=== PATIENT | male | born 1980 | race Caucasian/White ===

== ENCOUNTER 2019-03-14 17:00 | Inpatient (IN) ==
--- NOTE | 2019-03-14 17:28 | Emergency Department Note ---
Disposition Clinical Impression: Cellulitis Qualifiers: Site of cellulitis: extremity Site of cellulitis of extremity: upper extremity Laterality: left Qualified Code(s): L03.114 - Cellulitis of left upper limb Disposition: Admitted As Inpatient Condition: Fair Referrals: Dominic Fletcher DO [Primary Care Provider] - Forms: ED Satisfaction Letter Time of Disposition: 20:06 General Adult HPI - General Chief complaint: ED Recheck/Abnormal Lab/Rx Stated complaint: Abscess/swelling Time Seen by Provider: 03/14/19 17:28 Source: patient Mode of arrival: other (group home) Limitations: no limitations Nursing Notes Reviewed: Yes Vital Signs Reviewed: Yes - History of Present Illness HPI Narrative: This is a 38-year-old male presenting from group home with a deputy building guard at bedside. He states that he was here a few days ago and had left arm pain and was found to have an infection likely olecranon bursitis. He was discharged on oral Keflex and was sent back to group home. He has since had an increase of the area of induration now having fevers and chills, increase of pain. He states that he is in 10 out of 10 pain and it is sharp and constant. He is only taking ibuprofen for his pain and it has not helped him any. He has had subjective fevers however his temperature was not taken at the group home. Eyes any chest pain, shortness of breath, nausea or vomiting or diarrhea. He denies any abdominal pain. He denies any dizziness, lightheadedness. He was told to come back to the emergency room because his blood cultures were positive for gram-negative rods. This was only the preliminary reported no sensitivities were provided. Pt Subjective Complaint: arm hurts Pain Scale: 8 - Related Data Home Medications Medication Instructions Recorded Confirmed ALPRAZolam [Xanax 1 MG Tablet] 1 mg PO TID PRN 03/14/19 03/14/19 Albuterol Sulfate [Proventil 2 puff IH Q4HR PRN 03/14/19 03/14/19 Inhaler] Citalopram Hydrobromide [Celexa] 40 mg PO DAILY 03/14/19 03/14/19 Fluticasone Propionate Nasal 50 mcg NS DAILY 03/14/19 03/14/19 [Flonase] Previous Rx's Medication Instructions Recorded Sulfamethoxazole/Trimeth DS 1 each PO BID 10 Days tablet 03/12/19 [Bactrim DS] cephALEXin [Keflex] 500 mg PO QID 10 Days capsule 03/12/19 Allergies Allergy/AdvReac Type Severity Reaction Status Date / Time No Known Allergies Allergy Verified 03/12/19 01:52 Review of Systems: Constitutional: + fever, chills Cardio: denies chest pain, palpiltations Lungs: denies SOB, wheeze, cough, hemoptysis GI: denies N/V/D, denies abdominal pain, hematochezia : denies dysuria, hematuria MSK: admits to decreased ROM, joint swelling and stiffness; denies loss of function of the extremities Heme: denies easy bruising Neuro: deneis numbness or tingling, denies dizziness Skin: admits to left elbow wound with extension to the wrist and axilla Lymph: admits to swelling of the left arm Psych: denies anxiety, depression Allergy: denies seasonal allergies or food allergies All systems ED: reviewed and negative except as stated. Review of Systems: As Per [facility] Past Medical History - Past Medical History Attestation: Yes The following information was validated with the patient. Medical history: Reports: asthma Surgical history: Reports: other Psychiatric history: Reports: anxiety, PTSD - Social History Smoking Status: Current every day smoker Smokeless Tobacco Status: No Alcohol use: Reports: occasionally Drug use: Reports: marijuana, IV Drug Use Physical Exam . General: Well-developed, well-nourished patient lying in bed who appears non- toxic, mild distress Head: Atraumatic, normocephalic. Eyes: Sclera anicteric. ENT: Mucous membranes moist. Heart: Regular rate and rhythm without appreciable murmur. S1S2 CTA Neck: no JVD Lungs: Normal respiratory pattern without distress, lungs clear to auscultation b/l. No wheeze, rhonchi, rales or stridor Abdomen: Soft, non-tender, non-distended, no guarding or peritoneal signs. No bruising noted to the abdomen. No surgical scars present. Skin: Warm and dry without rash. Multiple tattoos Neurologic: Awake and alert with normal speech and mental status. Pupils are equal. Moves all extremities equally well. No focal deficits or lateralizing s igns. Follows command. To move all extremities and has intact motor function of both upper extremities including the fingers. Vascularly intact Psychiatric: Mood and affect appropriate, mildly anxious Musculoskeletal: No peripheral edema. Has swelling of the left upper extremity with trace pitting edema of the forearm region including the elbow. There is a foci of induration surrounding a furnucle without any drainage - General Limitations: no limitations General appearance: alert, in no apparent distress Course Course Narrative: History presenting with deputy building guard and was recently here for olecranon bursitis. He was given by mouth Keflex and discharged back to the group home. He had blood cultures that were still pending and grew out gram-negative organisms, no sensitivities have been provided yet. He was called back to the emergency room due to positive blood cultures. We will repeat basic labs and obtain a new set of blood cultures. Will start the patient on broad-spectrum antibiotics as his area of cellulitis has expanded and his arm now has edema with extension of infection to the axilla and down to the left wrist. Patient dose of vancomycin and Zosyn while in the emergency room. He is given fentanyl for pain control. Disposition is to be admitted to the hospitalist and orthopedic surgery consult. - Consultations Consultation #1: I spoke to Dr. Hanson in the orthopedic surgeon on-call. He stated that he wants the patient admitted to hospitalist with an orthopedic sx consult. Consult order placed in [facility]. Time: 17:30 Consultation #2: Hospitalist accepted the patient for admission. Time: 20:00 Vital Signs Temperature 99.7 F H 03/14/19 17:03 Pulse Rate 81 03/14/19 17:03 Respiratory Rate 18 03/14/19 17:03 Blood Pressure 117/75 03/14/19 17:03 O2 Sat by Pulse Oximetry 98 03/14/19 17:03 Temperature 99.8 F H 03/14/19 18:25 Pulse Rate 81 03/14/19 18:25 Respiratory Rate 18 03/14/19 18:25 Blood Pressure 117/75 03/14/19 18:25 O2 Sat by Pulse Oximetry 98 03/14/19 18:25 Oxygen Delivery Oxygen Delivery Room Air Medical Decision Making - [facility] Narrative Medical decision making narrative: pt present with officer at bedside after failed outpatient treatment of colitis/olecranon bursitis. He does have an increasing area of erythema and cellulitis, he has olecranon bursitis with suspected bacteremia. he does have intact neurologic function as well as motor function of the extremity and fingers. He does have positive blood cultures for gram-negative rods from March 12. Repeat blood cultures pending as well as was started on broad-spectrum antibiotics including vancomycin and Zosyn. This time he only needs 1 SIRS criteria for white count, he remains without tachycardia or tachypnea and fever. The lactic acid was within normal limits. I spoke to the orthopedic surgeon radiosonde specialist who requested the patient be admitted with a orthopedic consult and hospitalist as primary. PT/INR and made the patient nothing by mouth at midnight in case of surgical intervention. hospitalist did accept the patient for admission. The patient is aware of the plan and has no further questions. He did request more pain medication and he was provided with [place] one time. - Lab Data Lab results reviewed: Yes I reviewed the patient's lab results. Result diagrams: 03/14/19 18:07 03/14/19 18:07 Lab Results 03/14/19 03/14/19 03/14/19 Range/Units 18:07 18:07 18:07 WBC 13.0 H (4.3-11.1) K/mcL RBC 4.04 L (4.19-5.50) M/mcL Hgb 12.3 L D (12.9-16.9) g/dL Hct 37.8 (37.5-50.1) % MCV 93.6 (83.0-100.0) fL MCH 30.4 (28.0-33.3) pg MCHC 32.5 (31.6-35.5) g/dL RDW 12.8 (11.5-14.5) % Plt Count 230 (140-400) K/mcL MPV 9.2 L (9.4-12.4) fL Immature Gran % 0.4 (0-4) % Seg Neutrophils % 58.7 % Lymphocytes % 32.0 % Monocytes % 7.9 % Eosinophils % 0.5 % Basophils % 0.5 % Neutrophils # 7.6 (1.6-8.9) K/mcL Lymphocytes # 4.2 (0.6-4.6) K/mcL Monocytes # 1.0 (0.0-1.3) K/mcL Eosinophils # 0.1 (0.0-0.6) K/mcL Basophils # 0.1 (0.0-0.2) K/mcL Platelet Estimate Normal (Normal) PT 10.9 (9.4-12.1) Seconds INR 1.0 Sodium 138 (136-145) mEq/L Potassium 3.9 (3.5-5.1) mEq/L Chloride 99 (98-107) mEq/L Carbon Dioxide 30 H (23-29) mEq/L BUN 9 (6-20) mg/dL Creatinine 0.81 (0.70-1.30) mg/dL Est GFR ( Amer) > 60 (> 60) Est GFR (Non-Af Amer) > 60 (> 60) BUN/Creatinine Ratio 11 (6-26) Glucose 76 (70-105) mg/dL Calculated Osmolality 283 (280-300) Lactic Acid (0.5-2.2) mmol/L Calcium 9.1 (8.6-10.3) mg/dL 03/14/19 Range/Units 18:07 WBC (4.3-11.1) K/mcL RBC (4.19-5.50) M/mcL Hgb (12.9-16.9) g/dL Hct (37.5-50.1) % MCV (83.0-100.0) fL MCH (28.0-33.3) pg MCHC (31.6-35.5) g/dL RDW (11.5-14.5) % Plt Count (140-400) K/mcL MPV (9.4-12.4) fL Immature Gran % (0-4) % Seg Neutrophils % % Lymphocytes % % Monocytes % % Eosinophils % % Basophils % % Neutrophils # (1.6-8.9) K/mcL Lymphocytes # (0.6-4.6) K/mcL Monocytes # (0.0-1.3) K/mcL Eosinophils # (0.0-0.6) K/mcL Basophils # (0.0-0.2) K/mcL Platelet Estimate (Normal) PT (9.4-12.1) Seconds INR Sodium (136-145) mEq/L Potassium (3.5-5.1) mEq/L Chloride (98-107) mEq/L Carbon Dioxide (23-29) mEq/L BUN (6-20) mg/dL Creatinine (0.70-1.30) mg/dL Est GFR ( Amer) (> 60) Est GFR (Non-Af Amer) (> 60) BUN/Creatinine Ratio (6-26) Glucose (70-105) mg/dL Calculated Osmolality (280-300) Lactic Acid 1.0 (0.5-2.2) mmol/L Calcium (8.6-10.3) mg/dL
--- NOTE | 2019-03-14 17:38 | Emergency Department Note ---
Disposition Clinical Impression: Cellulitis Qualifiers: Site of cellulitis: extremity Site of cellulitis of extremity: upper extremity Laterality: left Qualified Code(s): L03.114 - Cellulitis of left upper limb Disposition: Admitted As Inpatient Condition: Fair Time of Disposition: 21:13 General Adult HPI - General Chief complaint: ED Recheck/Abnormal Lab/Rx Stated complaint: Abscess/swelling Time Seen by Provider: 03/14/19 17:28 - History of Present Illness Pain Scale: 8 - Related Data Home Medications Medication Instructions Recorded Confirmed ALPRAZolam [Xanax 1 MG Tablet] 1 mg PO TID PRN 03/14/19 03/14/19 Albuterol Sulfate [Proventil 2 puff IH Q4HR PRN 03/14/19 03/14/19 Inhaler] Citalopram Hydrobromide [Celexa] 40 mg PO DAILY 03/14/19 03/14/19 Fluticasone Propionate Nasal 50 mcg NS DAILY 03/14/19 03/14/19 [Flonase] Previous Rx's Medication Instructions Recorded Sulfamethoxazole/Trimeth DS 1 each PO BID 10 Days tablet 03/12/19 [Bactrim DS] cephALEXin [Keflex] 500 mg PO QID 10 Days capsule 03/12/19 Allergies Allergy/AdvReac Type Severity Reaction Status Date / Time No Known Allergies Allergy Verified 03/12/19 01:52 Past Medical History - Past Medical History Medical history: Reports: asthma Surgical history: Reports: other Psychiatric history: Reports: anxiety, PTSD - Social History Smoking Status: Current every day smoker Smokeless Tobacco Status: No Alcohol use: Reports: occasionally Drug use: Reports: marijuana, IV Drug Use Course Vital Signs Temperature 99.7 F H 03/14/19 17:03 Pulse Rate 81 03/14/19 17:03 Respiratory Rate 18 03/14/19 17:03 Blood Pressure 117/75 03/14/19 17:03 O2 Sat by Pulse Oximetry 98 03/14/19 17:03 Temperature 99.8 F H 03/14/19 18:25 Pulse Rate 81 03/14/19 18:25 Respiratory Rate 20 03/14/19 21:07 Blood Pressure 122/76 03/14/19 21:07 O2 Sat by Pulse Oximetry 98 03/14/19 18:25 Oxygen Delivery Oxygen Delivery Room Air Medical Decision Making - Lab Data Result diagrams: 03/14/19 18:07 03/14/19 18:07 Lab Results 03/14/19 03/14/19 03/14/19 Range/Units 18:07 18:07 18:07 WBC 13.0 H (4.3-11.1) K/mcL RBC 4.04 L (4.19-5.50) M/mcL Hgb 12.3 L D (12.9-16.9) g/dL Hct 37.8 (37.5-50.1) % MCV 93.6 (83.0-100.0) fL MCH 30.4 (28.0-33.3) pg MCHC 32.5 (31.6-35.5) g/dL RDW 12.8 (11.5-14.5) % Plt Count 230 (140-400) K/mcL MPV 9.2 L (9.4-12.4) fL Immature Gran % 0.4 (0-4) % Seg Neutrophils % 58.7 % Lymphocytes % 32.0 % Monocytes % 7.9 % Eosinophils % 0.5 % Basophils % 0.5 % Neutrophils # 7.6 (1.6-8.9) K/mcL Lymphocytes # 4.2 (0.6-4.6) K/mcL Monocytes # 1.0 (0.0-1.3) K/mcL Eosinophils # 0.1 (0.0-0.6) K/mcL Basophils # 0.1 (0.0-0.2) K/mcL Platelet Estimate Normal (Normal) PT 10.9 (9.4-12.1) Seconds INR 1.0 Sodium 138 (136-145) mEq/L Potassium 3.9 (3.5-5.1) mEq/L Chloride 99 (98-107) mEq/L Carbon Dioxide 30 H (23-29) mEq/L BUN 9 (6-20) mg/dL Creatinine 0.81 (0.70-1.30) mg/dL Est GFR ( Amer) > 60 (> 60) Est GFR (Non-Af Amer) > 60 (> 60) BUN/Creatinine Ratio 11 (6-26) Glucose 76 (70-105) mg/dL Calculated Osmolality 283 (280-300) Lactic Acid (0.5-2.2) mmol/L Calcium 9.1 (8.6-10.3) mg/dL 03/14/19 Range/Units 18:07 WBC (4.3-11.1) K/mcL RBC (4.19-5.50) M/mcL Hgb (12.9-16.9) g/dL Hct (37.5-50.1) % MCV (83.0-100.0) fL MCH (28.0-33.3) pg MCHC (31.6-35.5) g/dL RDW (11.5-14.5) % Plt Count (140-400) K/mcL MPV (9.4-12.4) fL Immature Gran % (0-4) % Seg Neutrophils % % Lymphocytes % % Monocytes % % Eosinophils % % Basophils % % Neutrophils # (1.6-8.9) K/mcL Lymphocytes # (0.6-4.6) K/mcL Monocytes # (0.0-1.3) K/mcL Eosinophils # (0.0-0.6) K/mcL Basophils # (0.0-0.2) K/mcL Platelet Estimate (Normal) PT (9.4-12.1) Seconds INR Sodium (136-145) mEq/L Potassium (3.5-5.1) mEq/L Chloride (98-107) mEq/L Carbon Dioxide (23-29) mEq/L BUN (6-20) mg/dL Creatinine (0.70-1.30) mg/dL Est GFR ( Amer) (> 60) Est GFR (Non-Af Amer) (> 60) BUN/Creatinine Ratio (6-26) Glucose (70-105) mg/dL Calculated Osmolality (280-300) Lactic Acid 1.0 (0.5-2.2) mmol/L Calcium (8.6-10.3) mg/dL Attestation Statement - Attestation Attestation: I reviewed the residents documentation and agree with the residents assessment and plan of care. I have personally had face to face time with the patient. (Brief History, Brief Exam, and MDM) I personally supervised and was present for the onofre/critical portions of the following procedures completed by the resident: (add procedures performed here). [id number] time provided Patient with left elbow swelling. He appears to have a pustule over his left posterior elbow with surrounding cellulitis. He has a low-grade fever. He recently had blood cultures that returned positive.
[2019-03-14] MEDS ORDERED: *HR* FentaNYL (PF) 100 MCG/2 ML VIAL IVP ONE (17:40)
[2019-03-14] MEDS ORDERED: Piperacillin/Tazobactam 3.375 GM in 0.9 % Sodium Chloride Mini Bag 100 ML IVPB ONE (17:41)
[2019-03-14 18:22] LABS: Basophils # 0.1 K/mcL (0.0-0.2); Basophils % 0.5 %; Eosinophils # 0.1 K/mcL (0.0-0.6); Eosinophils % 0.5 %; Hematocrit 37.8 % (37.5-50.1); Immature Granulocytes % 0.4 % (0-4); Lymphocytes # 4.2 K/mcL (0.6-4.6); Mean Corpuscular HGB Conc 32.5 g/dL (31.6-35.5); Mean Corpuscular Hemoglobin 30.4 pg (28.0-33.3); Mean Corpuscular Volume 93.6 fL (83.0-100.0); Mean Platelet Volume 9.2 fL (9.4-12.4); Monocytes % 7.9 %; Neutrophils # 7.6 K/mcL (1.6-8.9); Platelet Count 230 K/mcL (140-400); Red Blood Count 4.04 M/mcL (4.19-5.50); Red Cell Distribution Width 12.8 % (11.5-14.5); Segmented Neutrophils % 58.7 %
[2019-03-14 18:23] LABS: Hemoglobin 12.3 g/dL (12.9-16.9)
[2019-03-14 18:31] LABS: Prothrombin Time 10.9 Seconds (9.4-12.1)
[2019-03-14 18:42] LABS: BUN/Creatinine Ratio 11 (6-26); Blood Urea Nitrogen 9 mg/dL (6-20); Calcium 9.1 mg/dL (8.6-10.3); Carbon Dioxide 30 mEq/L (23-29); Chloride 99 mEq/L (98-107); Glucose 76 mg/dL (70-105); Osmolality,Calculated 283 (280-300); Potassium 3.9 mEq/L (3.5-5.1); Sodium 138 mEq/L (136-145); eGFR For African Americans > 60 (> 60); eGFR For Non-African Americans > 60 (> 60)
[2019-03-14 19:11] LABS: Platelet Estimate Normal (Normal)
[2019-03-14] MEDS ORDERED: *HR* HYDROcodone/Acet 10/325 mg TABLET PO ONE (20:05)
[2019-03-14] MEDS ORDERED: Naloxone 0.4 MG/ML INJ IVP PRN (21:39)
[2019-03-14] MEDS ORDERED: Ondansetron 4 MG/2 ML VIAL IVP PRN (21:39)
--- NOTE | 2019-03-14 21:55 | Internal Med History&Physical ---
Date of Encounter: 03/14/19 Time of Encounter: 21:25 Internal Medicine - H&P: HPI Chief complaint: Cellulitis, possible olecranon bursitis Admitted From: Emergency Dept Plans for Post Hospital Care: Home History of present illness: Mr. Cochran is a 38 year old male Patient presents to the emergency department with left elbow swelling and redness. He is an inmate at the local detention. He states while in the shower about 6 days ago he bumped his elbow, later he noted some pain and swelling that progressively worsened. About 2 days ago he came to the emergency department to be evaluated. He was discharged at that time on Bactrim and Keflex. Blood cultures were drawn at that time as well. X-ray showed no osseous abnormalities but did have moderate posterior soft tissue swelling. He returned to the hospital today because the swelling and pain has increased. He does have a history of staph infections in his legs which have been treated in the past. Emergency department patient's initial vital signs indicated a temperature of 99.8 increasing to 100.2 upon arrival to the floor. CBC notable for white count of 13.0, hemoglobin of 12.3. BMP within normal limits INR 1.0 Lactic acid 1.0 Elbow x-ray 03/12: Moderate posterior soft tissue swelling, no osseous abnormalities. Blood culture: Gram-negative dangelo, preliminary result in 1 of 2 cultures Patient was given a dose of vancomycin and Zosyn. Blood cultures were redrawn. He was admitted to the hospital for further management. The emergency department spoke with orthopedic surgery who will see the patient in the morning. Upon my evaluation, patient is resting comfortably in the hospital bed in no acute distress. He denies chest pain, abdominal pain, nausea, vomiting, diarrhea and constipation. He states that his pain is worse with movement. Nima n is mainly in the elbow down to the distal arm with some discomfort in the upper arm. He denies significant family medical history. He has a history of anxiety. He is a full code. Past Med Surg Social Fam HX - Past Medical History Medical history: asthma Additional medical history: diverticulitis, ibs Psychiatric history: anxiety, PTSD - Past Surgical History Surgical History: other Additional surgical history: Right foot surgery,. Screws in left ankle - Social History Smoking Status: Current every day smoker Smokeless Tobacco Status: No Alcohol use: occasionally Drug use: marijuana Internal Medicine - H&P: Meds Sulfamethoxazole/Trimeth DS [Bactrim DS] 1 each PO BID 10 Days tablet 03/12/19 [Rx] cephALEXin [Keflex] 500 mg PO QID 10 Days capsule 03/12/19 [Rx] ALPRAZolam [Xanax 1 MG Tablet] 1 mg PO TID PRN 03/14/19 [History] Albuterol Sulfate [Proventil Inhaler] 2 puff IH Q4HR PRN 03/14/19 [History] Citalopram Hydrobromide [Celexa] 40 mg PO DAILY 03/14/19 [History] Fluticasone Propionate Nasal [Flonase] 50 mcg NS DAILY 03/14/19 [History] Allergy/AdvReac Type Severity Reaction Status Date / Time No Known Allergies Allergy Verified 03/12/19 01:52 All Systems PM: A 10-system review of systems was performed and is negative for pertinent findings except as documented above in the HPI. - Constitutional Vitals: Temp Pulse Resp BP Pulse Ox 100.2 F H 82 17 132/72 97 03/14/19 21:28 03/14/19 21:28 03/14/19 21:28 03/14/19 21:28 03/14/19 21:28 General appearance: Present: cooperative, A&O X 3, pleasant, no acute distress, answers questions appropriately Exam: uniform patrol police officer at bedside, patient handcuffed to bed - Head Head exam: Present: normal inspection - Eye Eye exam: Present: EOMI, normal appearance - Respiratory Respiratory exam: Present: CTAB. Absent: rales, respiratory distress, rhonchi, wheezes - Cardiovascular Cardiovascular exam: Present: RRR. Absent: diastolic murmur, systolic murmur - GI/Abdominal GI/Abdominal exam: Present: normal bowel sounds, soft. Absent: tenderness - Extremities Exam Extremities exam: Present: tenderness, warm, radial pulses palpable and symmetrical. Absent: calf tenderness, pedal edema Additional comments: Left elbow swelling with erythema to wrist to mid upper arm. Painful with movement, no open wound - Neurological Exam Neurological exam: Present: no focal deficits, strengths equal and symetr throughout. Absent: motor sensory deficit, facial droop, speech deficit - Skin Skin exam: Present: dry, normal color, warm Internal Med - H&P Results - Labs CBC & Chem 7: 03/14/19 18:07 03/14/19 18:07 Labs: Short CBC 03/14/19 Range/Units 18:07 WBC 13.0 H (4.3-11.1) K/mcL Hgb 12.3 L D (12.9-16.9) g/dL Hct 37.8 (37.5-50.1) % Plt Count 230 (140-400) K/mcL Neutrophils # 7.6 (1.6-8.9) K/mcL BMP 03/14/19 18:07 Sodium 138 Potassium 3.9 Chloride 99 Carbon Dioxide 30 H BUN 9 Creatinine 0.81 Glucose 76 Calcium 9.1 - Assessment and Plan (1) Cellulitis of left elbow Current Visit: No Status: Acute Assessment and plan: Notable cellulitis of the left elbow with extension to the wrist and upper arm. Swelling and painful at the elbow as well. X-ray from the did not show osseous abnormalities for possible olecranon bursitis were on the differential. Orthopedic surgery notified, will see the patient in the morning. Patient had an elevated white count however vital signs were not consistent with sepsis criteria. Lactic acid was only 1.0. Repeat left elbow x-ray Follow-up orthopedic surgery consult Continue IV antibiotics Follow-up final results of blood cultures Nothing by mouth after midnight Pain management as needed (2) Current nicotine use Current Visit: Yes Status: Acute Assessment and plan: Nicotine patch as needed (3) DVT prophylaxis Current Visit: Yes Status: Acute Assessment and plan: SCDs - Time Spent With Patient Total time spent is greater than 50% in coordination of care (as documented) at patient's floor/unit and/or counseling patient: Greater than 35 minutes
[2019-03-14] MEDS ORDERED: Acetaminophen 325 MG TABLET PO PRN (21:57)
[2019-03-14] MEDS ORDERED: Nicotine 21 MG PATCH.TD24 TD PRN (22:06)
[2019-03-14] MEDS: 0.9 % Sodium Chloride 1,000 ML IVC SCH (22:24)
[2019-03-14] MEDS: Ketorolac 30 MG/ML VIAL IVP PRN (23:51)
[2019-03-14] MEDS: Piperacillin/Tazobactam 3.375 GM in 0.9 % Sodium Chloride Mini Bag 100 ML IVPB SCH (23:51)
[2019-03-15] MEDS: Ketorolac 30 MG/ML VIAL IVP PRN (05:37)
--- NOTE | 2019-03-15 06:30 | Orthopedics Progress Note ---
Date of Encounter: 03/15/19 Time of Encounter: 06:28 Subjective Interval history: Patient seen this morning, admitted with bacteremia, with infected olecranon bursitis, and streaking up the arm. Patient had blood cultures on March 12 growing gram-negative rods. Physical exam left upper extremity neurovascular intact full range of motion no pain patient is minimal swelling over the olecranon no palpable abscess to be evacuated. Patient is on appropriate antibiotics for gram-negative rods, continue to monitor his progress. Objective Vital signs: Vital Signs Temp Pulse Resp BP Pulse Ox 03/15/19 04:56 97.9 F 64 17 125/68 98 03/14/19 23:40 98.5 F 79 17 132/72 96 03/14/19 21:58 97 03/14/19 21:28 100.2 F H 82 17 132/72 97 03/14/19 21:07 20 122/76 03/14/19 18:25 99.8 F H 81 18 117/75 98 03/14/19 17:03 99.7 F H 81 18 117/75 98 Intake and Output 03/14/19 03/14/19 03/15/19 15:59 23:59 07:59 Intake Total 350 / 350 100 / 100 Balance 350 / 350 100 / 100 Intake: IV Fluids 350 / 350 100 / 100 Zosyn 3.375 GM In 0.9 % Sodium 100 / 100 100 / 100 Chloride (Mini-Bag +) 100 ML @ 25 mls/hr IVPB Q8HR GIOVANI Rx#: [id number] Vancocin 1,250 MG In 0.9 % 250 / 250 Sodium Chloride 250 ML @ 167 mls/hr IVPB ONCE ONE Rx#: [id number] Other: # Voids 1 # Bowel Movements 1 Weight 80.2 kg 80.7 kg Patient Weight 03/15/19 23:59 Weight 80.7 kg - Labs CBC & BMP: 03/14/19 18:07 03/14/19 18:07 Labs: Abnormal lab results WBC 13.0 K/mcL (4.3-11.1) H 03/14/19 18:07 RBC 4.04 M/mcL (4.19-5.50) L 03/14/19 18:07 Hgb 12.3 g/dL (12.9-16.9) L D 03/14/19 18:07 MPV 9.2 fL (9.4-12.4) L 03/14/19 18:07 Carbon Dioxide 30 mEq/L (23-29) H 03/14/19 18:07 Consult Discharge Plan - Plan Referrals: Dominic Fletcher DO [Primary Care Provider] -
[2019-03-15 06:45] LABS: Hematocrit 38.3 % (37.5-50.1); Hemoglobin 12.3 g/dL (12.9-16.9); Mean Corpuscular HGB Conc 32.1 g/dL (31.6-35.5); Mean Corpuscular Hemoglobin 30.2 pg (28.0-33.3); Mean Corpuscular Volume 94.1 fL (83.0-100.0); Mean Platelet Volume 9.4 fL (9.4-12.4); Platelet Count 239 K/mcL (140-400); Red Blood Count 4.07 M/mcL (4.19-5.50); Red Cell Distribution Width 12.8 % (11.5-14.5); White Blood Count 12.9 K/mcL (4.3-11.1)
[2019-03-15 06:53] LABS: INR 0.9; Prothrombin Time 10.2 Seconds (9.4-12.1)
[2019-03-15 07:04] LABS: BUN/Creatinine Ratio 16 (6-26); Blood Urea Nitrogen 15 mg/dL (6-20); Carbon Dioxide 32 mEq/L (23-29); Chloride 101 mEq/L (98-107); Glucose 86 mg/dL (70-105); Osmolality,Calculated 290 (280-300); Potassium 4.1 mEq/L (3.5-5.1); Sodium 140 mEq/L (136-145); eGFR For African Americans > 60 (> 60); eGFR For Non-African Americans > 60 (> 60)
[2019-03-15] MEDS ORDERED: DiphenhydraMINE CREAM 28.4 GM TUBE TP PRN (07:15)
[2019-03-15] MEDS: Piperacillin/Tazobactam 3.375 GM in 0.9 % Sodium Chloride Mini Bag 100 ML IVPB SCH ×3 (07:46→23:45)
[2019-03-15] MEDS: 0.9 % Sodium Chloride 1,000 ML IVC SCH (07:47)
[2019-03-15] MEDS: ALPRAZolam 1 MG TABLET PO PRN ×2 (10:15→17:20)
[2019-03-15] MEDS: Clotrimazole/Betameth Dip CRM 45 APPL/45 GM TUBE TP SCH ×2 (11:01→19:44)
[2019-03-15] MEDS: Fluticasone Propionate Nasal 50 MCG/SPRAY BOTTLE NS SCH (11:01)
[2019-03-15] MEDS: *HR* HYDROcodone/Acet 5/325 mg TABLET PO PRN (14:29)
--- NOTE | 2019-03-15 14:46 | Internal Med Progress Note ---
Hospitalist Progress Note - Encounter Date of Encounter: 03/15/19 Time of Encounter: 10:15 - Subjective Interval History: Mr. Cochran was seen at bedside this morning. He was resting comfortably and reported some pain with left hand movement. Reported erythema and edema of left olecranon process has worsened in the past few days. Denying any fever, chills, shortness of breath or chest pain. - Exam Vitals: Temp Pulse Resp BP Pulse Ox 98.3 F 78 16 122/73 99 03/15/19 14:19 03/15/19 14:19 03/15/19 14:19 03/15/19 14:03/15/19 14:19 Exam: Gen: Vitals noted. No acute distress. Appears comfortable. Eyes: anicteric sclerae, moist conjunctivae; no lid-lag HENT: Atraumatic; oropharynx clear with moist mucous membranes Cardiac: RRR, no murmur, +S1/S2. No JVD noted. Pulmonary: CTA bilaterally, no wheezes, rales or rhonchi, equal chest expansion Abdomen: soft, nontender, no guarding. No masses or hepatosplenomegaly MSK: Erythema involving left olecranon process as well as forearm. with edema involving the olecranon, sensation of the arm intact Skin: Erythema of left olecranon process and left forearm Neuro: No focal deficits, movement intact Psych: Appropriate mood and behavior. A&Ox3 - Assessment and Plan (1) Cellulitis of left elbow Current Visit: No Status: Acute Assessment and Plan: Notable edema, erythema and tenderness of olecranon process extending to forearms and wrist X-ray from the did not show osseous abnormalities for possible olecranon bursitis Orthopedic surgery notified, recommending IV antibiotics Repeat left elbow x-ray shows soft tissue swelling and subcutaneous edema increased from prior study Blood cultures on 03/12/19 show gram-negative rods Continue IV Vancomycin and Zosyn Follow-up final results of blood cultures Pain control with acetaminophen, Toradol and [place] (2) H/O intravenous drug use in remission Current Visit: Yes Status: Chronic Assessment and Plan: Reports previous history of IV drug use Reports most recent use 2 months ago Patient would like to be tested for hepatitis and HIV -Hep B, hep C and HIV test pending (3) Current nicotine use Current Visit: Yes Status: Acute Assessment and Plan: Nicotine patch as needed (4) Anxiety Current Visit: Yes Status: Acute Assessment and Plan: Continue home alprazolam (5) Depression Current Visit: Yes Status: Acute Assessment and Plan: Continue home Celexa DVT Prophylaxis: SCD - Time Spent with Patient Total time spent is greater than 50% in coordination of care (as documented) at patient's floor/unit and/or counseling patient: Internal Medicine: Result - Labs CBC & Chem 7: 03/15/19 06:23 03/15/19 06:23 Labs: Short CBC 03/14/19 03/15/19 Range/Units 18:07 06:23 WBC 13.0 H 12.9 H (4.3-11.1) K/mcL Hgb 12.3 L D 12.3 L (12.9-16.9) g/dL Hct 37.8 38.3 (37.5-50.1) % Plt Count 230 239 (140-400) K/mcL Neutrophils # 7.6 (1.6-8.9) K/mcL BMP 03/14/19 03/15/19 18:07 06:23 Sodium 138 140 Potassium 3.9 4.1 Chloride 99 101 Carbon Dioxide 30 H 32 H BUN 9 15 Creatinine 0.81 0.91 Glucose 76 86 Calcium 9.1 9.0 - ABG Interpretation ABG results: PT/INR, D-dimer PT 10.2 Seconds (9.4-12.1) 03/15/19 06:23 - Impressions Impressions Elbow X-Ray 03/14/19 22:04 IMPRESSION: Soft tissue swelling and subcutaneous edema, increased since the prior study. D/ / Mikaela Monahan Cha, MD / Mikaela Monahan Cha, MD Interpreting Provider: Mikaela Monahan Cha, MD Consult Discharge Plan - Plan Referrals: Dominic Fletcher DO [Primary Care Provider] - (5) Depression Qualifiers: Depression Type: unspecified Qualified Code(s): F32.9 - Major depressive disorder, single episode, unspecified
[2019-03-16] MEDS: ALPRAZolam 1 MG TABLET PO PRN ×2 (01:06→10:25)
[2019-03-16] MEDS: *HR* HYDROcodone/Acet 5/325 mg TABLET PO PRN ×3 (01:07→20:01)
[2019-03-16 06:28] LABS: Hematocrit 37.1 % (37.5-50.1); Hemoglobin 12.1 g/dL (12.9-16.9); Mean Corpuscular HGB Conc 32.6 g/dL (31.6-35.5); Mean Corpuscular Hemoglobin 30.3 pg (28.0-33.3); Mean Platelet Volume 9.1 fL (9.4-12.4); Platelet Count 246 K/mcL (140-400); Red Blood Count 3.99 M/mcL (4.19-5.50); Red Cell Distribution Width 12.5 % (11.5-14.5); White Blood Count 13.7 K/mcL (4.3-11.1)
[2019-03-16 06:49] LABS: BUN/Creatinine Ratio 11 (6-26); Blood Urea Nitrogen 9 mg/dL (6-20); Carbon Dioxide 32 mEq/L (23-29); Chloride 99 mEq/L (98-107); Glucose 70 mg/dL (70-105); Osmolality,Calculated 283 (280-300); Potassium 3.8 mEq/L (3.5-5.1); Sodium 138 mEq/L (136-145); eGFR For African Americans > 60 (> 60); eGFR For Non-African Americans > 60 (> 60)
[2019-03-16 07:12] LABS: Hepatitis B Surface Antigen Nonreactive (Nonreactive)
--- NOTE | 2019-03-16 07:23 | Orthopedics Progress Note ---
Date of Encounter: 03/16/19 Time of Encounter: 07:20 Subjective Interval history: Patient seen this morning, with direct trauma strength to the elbow while in the shower. Patient arm with minimal swelling, soft compartments. Continue IV antibiotics, cultures need to be resulted for this blood culture Hospital admission and the organism needs to be identified from March 12 buckled cultures. Objective Vital signs: Vital Signs Temp Pulse Resp BP Pulse Ox 03/16/19 06:56 98.6 F 79 16 116/71 95 03/16/19 03:42 98.9 F 78 17 121/77 97 03/16/19 00:37 98.4 F 69 17 121/65 99 03/15/19 19:42 99 03/15/19 19:28 98.5 F 89 18 113/71 99 03/15/19 14:19 98.3 F 78 16 122/73 99 03/15/19 09:47 98 F 67 16 128/76 99 Intake and Output 03/15/19 03/15/19 03/16/19 15:59 23:59 07:59 Intake Total 100 / 800 350 / 800 1100 / 1100 Balance 100 / 800 350 / 800 1100 / 1100 Intake: IV Fluids 100 / 800 350 / 800 1100 / 1100 0.9 % Sodium Chloride 1,000 ML 1000 / 1000 @ 125 mls/hr IVC .Q8H [facility] Rx#: [id number] Zosyn 3.375 GM In 0.9 % Sodium 100 / 300 100 / 300 100 / 100 Chloride (Mini-Bag +) 100 ML @ 25 mls/hr IVPB Q8HR [facility] Rx#: [id number] Vancocin 1,250 MG In 0.9 % 250 / 500 Sodium Chloride 250 ML @ 166.67 mls/hr IVPB Q12H [facility] Rx#: [id number] Other: Stool Size Large Stool Consistency formed Stool Characteristics Normal for Patient Stool Color Brown # Voids 1 1 - Labs CBC & BMP: 03/16/19 06:17 03/16/19 06:17 Labs: Abnormal lab results WBC 13.7 K/mcL (4.3-11.1) H 03/16/19 06:17 RBC 3.99 M/mcL (4.19-5.50) L 03/16/19 06:17 Hgb 12.1 g/dL (12.9-16.9) L 03/16/19 06:17 Hct 37.1 % (37.5-50.1) L 03/16/19 06:17 MPV 9.1 fL (9.4-12.4) L 03/16/19 06:17 Carbon Dioxide 32 mEq/L (23-29) H 03/16/19 06:17 Consult Discharge Plan - Plan Referrals: Dominic Fletcher DO [Primary Care Provider] -
[2019-03-16 07:41] LABS: HIV-1&2 Antibody & p24 Ag Nonreactive (Nonreactive)
[2019-03-16] MEDS: Clotrimazole/Betameth Dip CRM 45 APPL/45 GM TUBE TP SCH ×2 (08:30→20:04)
[2019-03-16] MEDS: Piperacillin/Tazobactam 3.375 GM in 0.9 % Sodium Chloride Mini Bag 100 ML IVPB SCH ×2 (08:30→15:00)
[2019-03-16] MEDS: Fluticasone Propionate Nasal 50 MCG/SPRAY BOTTLE NS SCH (08:30)
--- NOTE | 2019-03-16 11:38 | Electrocardiograph Report ---
[address] [address] Test Date: 2019-03-15 Pat Name: Carroll Cochran Department: 114 Room: [facility] Gender: M Ad Trafficker: Doni : [id number] Requested By: Cristopher Mead Order Number: [id number] Reading MD: Karina Dye Measurements Intervals [place] Rate: 58 P: 55 KS: 148 QRS: 68 QRSD: 109 T: 33 QT: 403 QTc: 400 Interpretive Statements SINUS BRADYCARDIA Electronically Signed On 03-16-2019 11:37:06 EDT by Karina Dye
[2019-03-16 11:52] LABS: Hepatitis C Virus Antibody Reactive (Nonreactive)
--- NOTE | 2019-03-16 13:43 | Internal Med Progress Note ---
Hospitalist Progress Note - Encounter Date of Encounter: 03/16/19 Time of Encounter: 13:41 - Subjective Interval History: Mr. Cochran was resting in bed. Overnight remained afebrile and normotensive. Reported overall does not feel great this morning. Denied any fever or chills. - Exam Vitals: Temp Pulse Resp BP Pulse Ox 97.9 F 79 18 128/72 99 03/16/19 11:56 03/16/19 11:56 03/16/19 11:56 03/16/19 11:56 03/16/19 11:56 Exam: Gen: Vitals noted. No acute distress. Appears comfortable. Eyes: anicteric sclerae, moist conjunctivae; no lid-lag HENT: Atraumatic; oropharynx clear with moist mucous membranes Cardiac: RRR, no murmur, +S1/S2. No JVD noted. Pulmonary: CTA bilaterally, no wheezes, rales or rhonchi, equal chest expansion MSK: Erythema involving left olecranon process as well as forearm. with edema involving the olecranon, sensation of the arm intact Skin: Erythema of left olecranon process and left forearm Neuro: No focal deficits, movement intact Psych: Appropriate mood and behavior. A&Ox3 - Assessment and Plan (1) Cellulitis of left elbow Current Visit: No Status: Acute Assessment and Plan: Notable edema, erythema and tenderness of olecranon process extending to forearms and wrist X-ray from the did not show osseous abnormalities for possible olecranon bursitis Orthopedic surgery notified, recommending IV antibiotics Repeat left elbow x-ray shows soft tissue swelling and subcutaneous edema increased from prior study Blood cultures on 03/12/19 show anaerobic gram-negative rods Continue IV Vancomycin and Zosyn Follow-up final results of blood cultures Pain control with acetaminophen, Toradol and [place] (2) H/O intravenous drug use in remission Current Visit: Yes Status: Chronic Assessment and Plan: Reports previous history of IV drug use Reports most recent use 2 months ago Hep B antigen nonreactive, HIV antigen antibody nonreactive Hepatitis C antibody reactive Will need outpatient follow-up for hepatitis C treatment options and resolution (3) Current nicotine use Current Visit: Yes Status: Acute Assessment and Plan: Nicotine patch as needed (4) Anxiety Current Visit: Yes Status: Acute Assessment and Plan: Continue home alprazolam (5) Depression Current Visit: Yes Status: Acute Assessment and Plan: Continue home Celexa (6) Hepatitis C antibody test positive Current Visit: Yes Status: Acute Assessment and Plan: History of IV drug use last use 2 months ago Hep C antibody is positive Will need outpatient follow-up DVT Prophylaxis: SCD - Time Spent with Patient Total time spent is greater than 50% in coordination of care (as documented) at patient's floor/unit and/or counseling patient: Internal Medicine: Result - Labs CBC & Chem 7: 03/16/19 06:17 03/16/19 06:17 Labs: Short CBC 03/16/19 Range/Units 06:17 WBC 13.7 H (4.3-11.1) K/mcL Hgb 12.1 L (12.9-16.9) g/dL Hct 37.1 L (37.5-50.1) % Plt Count 246 (140-400) K/mcL BMP 03/16/19 06:17 Sodium 138 Potassium 3.8 Chloride 99 Carbon Dioxide 32 H BUN 9 Creatinine 0.79 Glucose 70 Calcium 9.0 - ABG Interpretation ABG results: PT/INR, D-dimer PT 10.2 Seconds (9.4-12.1) 03/15/19 06:23 Consult Discharge Plan - Plan Referrals: Dominic Fletcher DO [Primary Care Provider] - (5) Depression Qualifiers: Depression Type: unspecified Qualified Code(s): F32.9 - Major depressive disorder, single episode, unspecified
[2019-03-17] MEDS: Piperacillin/Tazobactam 3.375 GM in 0.9 % Sodium Chloride Mini Bag 100 ML IVPB SCH ×3 (00:09→15:16)
[2019-03-17] MEDS: *HR* HYDROcodone/Acet 5/325 mg TABLET PO PRN ×2 (04:08→19:51)
--- NOTE | 2019-03-17 06:41 | Orthopedics Progress Note ---
Date of Encounter: 03/17/19 Time of Encounter: 06:40 Subjective Interval history: Patient doing better, swelling of arm improved, localized erythema around the elbow, no palpable abscess The patient can be discharged once an appropriate oral antibiotics as identified based on his March 12 blood cultures follow-up with physician hotel administrative assistant in office. Objective Vital signs: Vital Signs Temp Pulse Resp BP Pulse Ox 03/17/19 03:04 97.5 F L 86 16 141/91 100 03/17/19 00:16 98.1 F 90 14 151/77 98 03/16/19 21:07 98.8 F 74 16 120/67 100 03/16/19 19:09 99 03/16/19 16:25 98.1 F 82 18 126/74 99 03/16/19 11:56 97.9 F 79 18 128/72 99 03/16/19 06:56 98.6 F 79 16 116/71 95 Intake and Output 03/16/19 03/16/19 03/17/19 15:59 23:59 07:59 Intake Total 1150 / 4750 2500 / 4750 1060 / 1060 Output Total 700 / 700 Balance 1150 / 4750 2500 / 4750 360 / 360 Intake: IV Fluids 350 / 1800 350 / 1800 100 / 100 Zosyn 3.375 GM In 0.9 % Sodium 100 / 300 100 / 300 100 / 100 Chloride (Mini-Bag +) 100 ML @ 25 mls/hr IVPB Q8HR [facility] Rx#: [id number] Vancocin 1,250 MG In 0.9 % 250 / 500 250 / 500 Sodium Chloride 250 ML @ 166.67 mls/hr IVPB Q12H [facility] Rx#: [id number] Oral 800 / 2950 2150 / 2950 960 / 960 Output: Urine 700 / 700 Other: Meal Dinner Percent of Meal Consumed 100% # Voids 1 1 Weight 83.3 kg Patient Weight 03/17/19 23:59 Weight 83.3 kg - Labs CBC & BMP: 03/16/19 06:17 03/16/19 06:17 Labs: Abnormal lab results WBC 13.7 K/mcL (4.3-11.1) H 03/16/19 06:17 RBC 3.99 M/mcL (4.19-5.50) L 03/16/19 06:17 Hgb 12.1 g/dL (12.9-16.9) L 03/16/19 06:17 Hct 37.1 % (37.5-50.1) L 03/16/19 06:17 MPV 9.1 fL (9.4-12.4) L 03/16/19 06:17 Carbon Dioxide 32 mEq/L (23-29) H 03/16/19 06:17 Hepatitis C Ab Screen Reactive (Nonreactive) H 03/16/19 06:17 Consult Discharge Plan - Plan Referrals: Dominic Fletcher DO [Primary Care Provider] -
[2019-03-17 07:25] LABS: Basophils # 0.1 K/mcL (0.0-0.2); Basophils % 0.6 %; Eosinophils # 0.2 K/mcL (0.0-0.6); Eosinophils % 1.1 %; Hematocrit 38.6 % (37.5-50.1); Hemoglobin 12.9 g/dL (12.9-16.9); Lymphocytes # 4.9 K/mcL (0.6-4.6); Lymphocytes % 37.9 %; Mean Corpuscular HGB Conc 33.4 g/dL (31.6-35.5); Mean Corpuscular Hemoglobin 30.2 pg (28.0-33.3); Mean Corpuscular Volume 90.4 fL (83.0-100.0); Mean Platelet Volume 9.1 fL (9.4-12.4); Monocytes # 0.8 K/mcL (0.0-1.3); Monocytes % 6.3 %; Neutrophils # 6.9 K/mcL (1.6-8.9); Platelet Count 279 K/mcL (140-400); Red Blood Count 4.27 M/mcL (4.19-5.50); Red Cell Distribution Width 12.7 % (11.5-14.5); Segmented Neutrophils % 53.1 %; White Blood Count 13.1 K/mcL (4.3-11.1)
[2019-03-17 07:38] LABS: BUN/Creatinine Ratio 12 (6-26); Blood Urea Nitrogen 12 mg/dL (6-20); Calcium 9.8 mg/dL (8.6-10.3); Carbon Dioxide 30 mEq/L (23-29); Chloride 103 mEq/L (98-107); Glucose 105 mg/dL (70-105); Osmolality,Calculated 282 (280-300); Potassium 3.7 mEq/L (3.5-5.1); Sodium 136 mEq/L (136-145); eGFR For African Americans > 60 (> 60); eGFR For Non-African Americans > 60 (> 60)
[2019-03-17] MEDS: Fluticasone Propionate Nasal 50 MCG/SPRAY BOTTLE NS SCH (08:24)
[2019-03-17] MEDS: Clotrimazole/Betameth Dip CRM 45 APPL/45 GM TUBE TP SCH ×2 (08:25→19:52)
[2019-03-17] MEDS: ALPRAZolam 1 MG TABLET PO PRN ×2 (08:29→21:59)
--- NOTE | 2019-03-17 13:36 | Internal Med Progress Note ---
Hospitalist Progress Note - Encounter Date of Encounter: 03/17/19 Time of Encounter: 13:31 - Subjective Interval History: Arm pain and swelling and ROM all improving. No fevers. No N/V/D, SOB, or CP. Does still have rash on neck. Waiting patiently for cultures to result, denies s/e from IV abx. - Exam Vitals: Temp Pulse Resp BP Pulse Ox 98.2 F 85 18 137/79 99 03/17/19 11:17 03/17/19 11:17 03/17/19 11:17 03/17/19 11:17 03/17/19 11:17 Exam: General: NAD, good eye contact, well appearing Thoracic: Normal breath sounds b/l, no wheezing or crackles Cardio: Normal S1 and S2, regular rate and rhythm Abdomen: Soft, nontender Extremities: Warm, well perfused. DP pulses 2+ b/l. No edema. LUE erythematous and swollen from distal forearm up to mid upper arm, mild tenderness but without fluctuance of olecranon Neuro: Awake, fully oriented. Speech fluent - Assessment and Plan (1) Cellulitis of left elbow Current Visit: No Status: Acute Assessment and Plan: Carroll Cochran is a 38 M w hx smoker, IVDA, HCV, anx/dep, who p/w L elbow painful rash, labs w leukocytosis, concerning for cellulitis. Anaerobic gram negative bacteremia: likely 2/2 cellulitis below - f/u BCx, organism is slow growing, anticipate results in 1-2 more days - empiric zosyn Cellulitis of LUE: seems likely from elbow/olecranon abrasion, currently improving - Ortho consulted, appreciate eval - continue empiric vanc/zosyn - awaiting cultures as above Anx/dep: home celexa and xanax HCV: new dx, needs outpatient follow up Smoker: nicotine offered, cessation advised IVDA: SW consult PPx: ambulate Activity: ambulate FEN: regular, no MIVF Lines: PIV Consults: Ortho Code: Full Dispo: patient requires inpatient eval and management at this time. Anticipate 1-2 days. Will be homegoing Internal Medicine: Result - Labs CBC & Chem 7: 03/17/19 06:59 03/17/19 06:59 Labs: Short CBC 03/17/19 Range/Units 06:59 WBC 13.1 H (4.3-11.1) K/mcL Hgb 12.9 (12.9-16.9) g/dL Hct 38.6 (37.5-50.1) % Plt Count 279 (140-400) K/mcL Neutrophils # 6.9 (1.6-8.9) K/mcL BMP 03/17/19 06:59 Sodium 136 Potassium 3.7 Chloride 103 Carbon Dioxide 30 H BUN 12 Creatinine 1.00 Glucose 105 Calcium 9.8 - ABG Interpretation ABG results: PT/INR, D-dimer PT 10.2 Seconds (9.4-12.1) 03/15/19 06:23 Consult Discharge Plan - Plan Referrals: Dominic Fletcher DO [Primary Care Provider] -
[2019-03-18] MEDS: Piperacillin/Tazobactam 3.375 GM in 0.9 % Sodium Chloride Mini Bag 100 ML IVPB SCH ×2 (00:01→09:08)
[2019-03-18] MEDS: *HR* HYDROcodone/Acet 5/325 mg TABLET PO PRN (04:06)
[2019-03-18 06:27] LABS: Hematocrit 37.6 % (37.5-50.1); Hemoglobin 12.3 g/dL (12.9-16.9); Mean Corpuscular HGB Conc 32.7 g/dL (31.6-35.5); Mean Corpuscular Hemoglobin 30.1 pg (28.0-33.3); Mean Corpuscular Volume 91.9 fL (83.0-100.0); Mean Platelet Volume 8.9 fL (9.4-12.4); Platelet Count 294 K/mcL (140-400); Red Blood Count 4.09 M/mcL (4.19-5.50); Red Cell Distribution Width 12.8 % (11.5-14.5); White Blood Count 11.2 K/mcL (4.3-11.1)
[2019-03-18 06:47] LABS: BUN/Creatinine Ratio 18 (6-26); Blood Urea Nitrogen 14 mg/dL (6-20); Calcium 9.9 mg/dL (8.6-10.3); Carbon Dioxide 29 mEq/L (23-29); Chloride 98 mEq/L (98-107); Glucose 88 mg/dL (70-105); Osmolality,Calculated 286 (280-300); Potassium 4.4 mEq/L (3.5-5.1); Sodium 138 mEq/L (136-145); eGFR For African Americans > 60 (> 60); eGFR For Non-African Americans > 60 (> 60)
[2019-03-18 08:14] VITALS: BP 120/82
--- NOTE | 2019-03-18 08:50 | Discharge Summary ---
- NOTES TO OUTPATIENT PROVIDER Notes to Outpatient Provider: Cellulitis with gram negative anaerobic bacteremia. Discharged on Augmentin but will need to follow up anaerobic culture results in 1-2 weeks to ensure sensitive Orders not resulted at time of discharge: Pending orders 03/14/19 17:55 Culture,Blood [BC] Stat Date of Encounter: 03/18/19 Time of Encounter: 08:47 - Discharge Diagnosis (1) Cellulitis of left elbow Priority: Primary Status: Acute Hospital course: Dear Doctors, I recently had the opportunity to care for this patient during their recent hospital stay at [facility]. Carroll Cochran is a 38 M w hx smoker, IVDA, HCV, anx/dep, who presented at time of admission with L elbow painful rash which was worsening despite outpatient treatment w Bactrim and Keflex. Fortuitously noted on day of return to ED that blood culture from his initial visit flagged positive for slow-growing anaerobic gram negative bacilli. The patient's labs revealed leukocytosis. He was admitted for failed outpatient management of cellulitis and gram negative bacteremia. In the hospital, patient responded well to broad spectrum abx. XR imaging of elbow showed only soft tissue edema, and Ortho consult did not feel there was need for surgical intervention as no fluid pocket identified. Due to improvement, the patient was converted to PO Augmentin which should empirically cover his nonpurulent cellulitis as well as gram negative anaerobic bacteremia, the results of which will not be available for another 7-10 days. He was also found during admission to have positive antibody for HCV, and will follow up outpatient for this. Dx: L elbow cellulitis, anaerobic gram negative bacteremia, HCV antibody positive Pertinent tests/consults: Ortho consult, XR w soft tissue swelling but no bone involvement Follow up: PCP 1 week, Ortho 1-2 weeks, ID eventually Tests pending: Anaerobic blood culture Med changes: new Augmentin 875 bid x7d, last dose 03/25 Mental status: awake, fully oriented Code status: Cloth Picker spent on discharge: 35 minutes It has been my pleasure participating in this patient's care. Please contact me with any questions or concerns regarding their hospital stay. Sincerely, Gopi Baldwin MD - Discharge Medications Prescriptions: New Amoxicillin/Clavulanate [Augmentin] 875 mg PO BIDWM #14 tablet Continued Fluticasone Propionate Nasal [Flonase] 50 mcg NS DAILY Citalopram Hydrobromide [Celexa] 40 mg PO DAILY ALPRAZolam [Xanax 1 MG Tablet] 1 mg PO TID PRN PRN Reason: Anxiety Albuterol Sulfate [Proventil Inhaler] 2 puff IH Q4HR PRN PRN Reason: Dyspnea Discontinued Sulfamethoxazole/Trimeth DS [Bactrim DS] 1 each PO BID 10 Days tablet cephALEXin [Keflex] 500 mg PO QID 10 Days capsule Home Medications: ALPRAZolam [Xanax 1 MG Tablet] 1 mg PO TID PRN 03/14/19 [History] Albuterol Sulfate [Proventil Inhaler] 2 puff IH Q4HR PRN 03/14/19 [History] Citalopram Hydrobromide [Celexa] 40 mg PO DAILY 03/14/19 [History] Fluticasone Propionate Nasal [Flonase] 50 mcg NS DAILY 03/14/19 [History] Amoxicillin/Clavulanate [Augmentin] 875 mg PO BIDWM #14 tablet 03/18/19 [Rx] Allergies/Adverse Reactions: Allergy/AdvReac Type Severity Reaction Status Date / Time No Known Allergies Allergy Verified 03/12/19 01:52 Date of admission: 03/15/19 07:59 Primary care physician: Dominic Fletcher DO Consults: 03/14/19 17:41 Consult to Orthopedic Surgery [CONS] Stat Consulting Provider: [facility] Reason for Consult: olecranon bursitis with systemic s/s, outpt tx failure Call Completed: Yes 03/14/19 21:40 Consult to Pastoral Services [CONS] Routine Comment: - Constitutional Vitals: Temp Pulse Resp BP Pulse Ox 97.5 F L 73 16 120/82 99 03/18/19 08:13 03/18/19 08:13 03/18/19 08:13 03/18/19 08:13 03/18/19 08:13 Exam: General: NAD, good eye contact, well appearing Thoracic: Normal breath sounds b/l, no wheezing or crackles Cardio: Normal S1 and S2, regular rate and rhythm Abdomen: Soft, nontender Extremities: Warm, well perfused. DP pulses 2+ b/l. No edema. LUE erythematous and swollen from distal forearm up to mid upper arm, mild tenderness but without fluctuance of olecranon Neuro: Awake, fully oriented. Speech fluent - Patient Status Disposition: Home, Self-Care Condition: Fair Functional capacity at discharge: independent ambulation Overall status at discharge: patient is progressing back to baseline - Discharge Instructions Follow Up With: Dominic Fletcher DO [Primary Care Provider] - Andrea Kyle MD [Partnered Physician] - (Formerly [facility], [facility], appointment in 1-2 months when available) Parminder Hanson MD [Partnered Physician] - (1-2 weeks) - Diet and Activity Activity: resume usual activities as tolerated Diet: advance to your usual diet
[2019-03-18] MEDS: Fluticasone Propionate Nasal 50 MCG/SPRAY BOTTLE NS SCH (09:11)
[2019-03-18] MEDS: Clotrimazole/Betameth Dip CRM 45 APPL/45 GM TUBE TP SCH (09:11)
[2019-03-18] MEDS: ALPRAZolam 1 MG TABLET PO PRN (09:39)
[2019-03-18] MEDS ORDERED: Aminoglycoside Consult 1 EACH MC ONE (11:49)
== END 2019-03-18 11:50 | disposition home or self-care (01) | DRG 383 ==
LOC: 3NENU 17:00 → EMEROOARM 17:00 → SUATTDRO 20:59 → 3NENU 21:12
PROVIDERS: ADMIT Pediatrics; ATTEND Internal Medicine